=== PATIENT | male | born 1950 | race Caucasian/White ===

== ENCOUNTER 2020-04-15 12:07 | Emergency (ER) | payer MEDICARE, OTHER ==
[2020-04-15] MEDS ORDERED: KETOROLAC 30 MG/ML VIAL IVP STA (13:18)
--- NOTE | 2020-04-15 13:18 | ED Physician Documentation ---
PD HPI ABD PAIN - Stated complaint Stated Complaint: RT SIDE PX - Chief complaint Chief Complaint: Abd Pain - History obtained from History obtained from: Patient - Additional information Additional information: Otherwise healthy 69-year-old gentleman with history of renal colic x1 about 10 years ago treated conservatively presents with a days worth of moderately severe right flank pain radiating to the right lower quadrant. It is associated with some nausea and poor appetite as well as urinary frequency. He thinks it is reminiscent of prior renal colic but it has been 10 years. No history of abdominal surgeries. He has not had obvious hematuria. Review of Systems Ten Systems: 10 systems reviewed and negative Constitutional: denies: Fever, Chills Cardiac: denies: Chest pain / pressure, Palpitations Respiratory: denies: Dyspnea, Cough PD PAST MEDICAL HISTORY - Present Medications Home Medications: Ambulatory Orders Medication Instructions Recorded Confirmed HYDROcod/ACETAM 5/325 [[place] 5/325] 1 - 2 tab PO Q6H PRN #15 tablet 04/15/20 Tamsulosin [Flomax] 0.4 mg PO DAILY #14 capsule 04/15/20 - Allergies Allergies/Adverse Reactions: Allergies Allergy/AdvReac Type Severity Reaction Status Date / Time No Known Drug Allergies Allergy Verified 04/15/20 12:23 - Social History Does the pt smoke?: No Smoking Status: Never smoker Does the pt drink ETOH?: No Does the pt have substance abuse?: No - Immunizations Immunizations are current?: Yes - POLST Patient has POLST: No PD ED PE NORMAL - Vitals Vital signs reviewed: Yes - General General: Alert and oriented X 3, No acute distress - HEENT HEENT: PERRL, EOMI - Neck Neck: Supple, no meningeal sign, No bony TTP - Abdomen Abdomen: Normal bowel sounds, Soft, Non tender - Back Back: Other (No flank tenderness, no shingles rash) - Neuro Neuro: Alert and oriented X 3, Normal speech Results - Vitals Vitals: Vital Signs - 24 hr 04/15/20 04/15/20 12:23 12:25 Temperature 36.3 C L 36.5 C Heart Rate 65 65 Respiratory 18 18 Rate Blood Pressure 150/80 H 150/80 H O2 Saturation 99 99 Oxygen O2 Source Room air - Labs Labs: Laboratory Tests 04/15/20 04/15/20 04/15/20 13:05 13:28 13:28 WBC 14.6 H RBC 5.27 Hgb 15.2 Hct 47.2 MCV 89.6 MCH 28.8 MCHC 32.2 RDW 14.1 Plt Count 324 MPV 10.8 Neut # (Auto) 12.3 H Lymph # (Auto) 0.9 L Ralls # (Auto) 1.2 H Eos # (Auto) 0.1 Baso # (Auto) 0.1 Absolute Nucleated RBC 0.00 Nucleated RBC % 0.0 Sodium 142 Potassium 3.9 Chloride 101 Carbon Dioxide 25 Anion Gap 16.0 H BUN 20 Creatinine 1.2 Estimated GFR (MDRD) 60 L Glucose 104 H Calcium 9.3 Total Bilirubin 0.5 AST 19 ALT 23 Alkaline Phosphatase 96 Total Protein 7.8 Albumin 4.2 Globulin 3.6 Albumin/Globulin Ratio 1.2 Lipase 39 Urine Color YELLOW Urine Clarity CLOUDY Urine pH 5.5 Ur Specific [place] >=1.030 H Urine Protein NEGATIVE Urine Glucose (UA) NEGATIVE Urine Ketones NEGATIVE Urine Occult Blood MODERATE H Urine Nitrite NEGATIVE Urine Bilirubin NEGATIVE Urine Urobilinogen 0.2 (NORMAL) Ur Leukocyte Esterase NEGATIVE Urine RBC 0-5 Urine WBC 0-3 Ur Squamous Epith Cells NONE SEEN Amorphous Sediment Moderate Urine Bacteria Moderate H Ur Microscopic Review INDICATED Urine Culture Comments INDICATED PD MEDICAL DECISION MAKING - ED course ED course: 69-year-old gentleman with history and physical most consistent with renal colic, differential diagnosis also includes AAA, and other age-related vascular and intra-abdominal issues. CT of the abdomen and pelvis was somewhat limited by beam hardening artifact from his hips but did suggest a 3.7 mm right UVJ stone with right-sided hydronephrosis. Bilateral renal cysts, small hiatal hernia, and left inguinal hernia. All of these were discussed with the patient. His pain was better after Toradol. No narcotics here as he wanted to maintain his ability to drive. Departure - Departure Disposition: 01 Home, Self Care Clinical Impression: Renal colic on right side Condition: Good Record reviewed to determine appropriate education?: Yes Instructions: ED Stone Renal W Colic Follow-Up: Giovanny Chun MD [Provider Admit Priv/Credential] - Prescriptions: Tamsulosin [Flomax] 0.4 mg PO DAILY #14 capsule HYDROcod/ACETAM 5/325 [[place] 5/325] 1 - 2 tab PO Q6H PRN #15 tablet PRN Reason: Pain Comments: As discussed, the CAT scan was somewhat limited by your hip prosthetics, but the radiologist feels that you likely have a 3.7 mm stone which is nearly in the bladder on the right. As such we are hopeful that I will stop bothering you soon. If it is not better in a few days you can make an appointment to follow- up with one of the urologists in [place], phone number on this form. Return if worsening. Do not drink or drive while taking narcotic pain medication. You can strain your urine as discussed and if you get material out you can take it to your doctor for analysis. As discussed, incidental findings on the CAT scan included a hiatal hernia, left inguinal hernia, and renal cysts.
[2020-04-15 13:19] LABS: BILIRUBIN,URINE NEGATIVE (NEGATIVE); GLUCOSE, URINE (UA) NEGATIVE (NEGATIVE); KETONES,URINE (UA) NEGATIVE (NEGATIVE); LEUKOCYTE ESTERASE, URINE NEGATIVE (NEGATIVE); NITRITE,URINE NEGATIVE (NEGATIVE); OCCULT BLOOD,URINE MODERATE (NEGATIVE); PH,URINE 5.5 PH (5.0-7.5); PROTEIN,URINE NEGATIVE (NEGATIVE); UROBILINOGEN,URINE 0.2 (NORMAL) E.U./dL (NORMAL)
[2020-04-15 13:27] LABS: CLARITY,URINE CLOUDY (CLEAR)
[2020-04-15 13:36] LABS: BASOPHILS # (AUTO) 0.1 10^3/uL (0.0-0.1); BASOPHILS % (AUTO) 0.3 %; EOSINOPHILS # (AUTO) 0.1 10^3/uL (0.0-0.7); EOSINOPHILS % (AUTO) 0.8 %; HCT - HEMATOCRIT 47.2 % (42.0-52.0); HGB - HEMOGLOBIN 15.2 g/dL (14.0-18.0); LYMPHOCYTES # (AUTO) 0.9 10^3/uL (1.5-3.5); LYMPHOCYTES % (AUTO) 6.4 %; MEAN CORPUSCULAR HEMOGLOBIN 28.8 pg (27.0-31.0); MEAN CORPUSCULAR HGB CONC 32.2 g/dL (32.0-36.0); MEAN CORPUSCULAR VOLUME 89.6 fL (80.0-94.0); MEAN PLATELET VOLUME 10.8 fL (7.4-11.4); MONOCYTES # (AUTO) 1.2 10^3/uL (0.0-1.0); MONOCYTES % (AUTO) 8.2 %; NEUTROPHILS # (AUTO) 12.3 10^3/uL (1.5-6.6); PLT - PLATELET COUNT 324 10^3/uL (130-450); RED BLOOD COUNT 5.27 10^6/uL (4.70-6.10); RED CELL DISTRIBUTION WIDTH 14.1 % (12.0-15.0); WHITE BLOOD COUNT 14.6 x10^3/uL (4.8-10.8)
[2020-04-15 13:38] LABS: RBC,URINE 0-5 /HPF (0-5); SQUAMOUS EPITHELIAL CELL,UR NONE SEEN (<= Few); WBC,URINE 0-3 /HPF (0-3)
[2020-04-15 13:39] LABS: AMORPHOUS SEDIMENT,UR Moderate /LPF
[2020-04-15 13:40] LABS: BACTERIA,URINE Moderate /HPF (None Seen)
[2020-04-15 13:50] LABS: ALBUMIN 4.2 g/dL (3.2-5.5); ALBUMIN/GLOBULIN RATIO 1.2 (1.0-2.2); BILIRUBIN,TOTAL 0.5 mg/dL (0.2-1.0); CALCIUM 9.3 mg/dL (8.5-10.3); CREATININE 1.2 mg/dL (0.6-1.2); POTASSIUM 3.9 mmol/L (3.5-5.0); TOTAL PROTEIN 7.8 g/dL (6.7-8.2)
--- NOTE | 2020-04-15 13:56 | CT Report ---
PROCEDURE: Abdomen/Pelvis WO INDICATIONS: flank pain TECHNIQUE: Noncontrast 5 mm thick sections acquired from the diaphragms to the symphysis. 5 mm coronal and sagi ttal reformats were then performed. For radiation dose reduction, the following was used: automated exposure control, adjustment of mA and/or kV according to patient size. COMPARISON: None. FINDINGS: Image quality: Excellent. ABDOMEN: Lung bases: Bibasilar dependent atelectasis is seen. Heart size is normal. Solid organs: Liver and spleen are normal in size. Small well-circumscribed areas of hypodensities are seen scattered in right and left hepatic lobes measures up to 1.3 cm in size in anterior left hep atic lobe and up to 1.4 cm in lateral periphery of anterior segment right hepatic lobe. Gallbladder i s within normal limits Pancreas is normal in contours. No adrenal nodules. Kidneys are normal in s ize. Bilateral cortical and parapelvic renal cysts are seen. No renal calculi are seen. There is prom inence of right renal collecting system and right ureter with mild right perinephric fat stranding. M ost distal ureter is suboptimally evaluated due to presence of significant beam hardening artifacts i n bilateral hip. There is a calcification measures 3.7 mm in size seen in the region of distal right ureter/UVJ concerning for obstructing stone. No left-sided hydronephrosis is seen. Left ureter is wit hin normal limits. Peritoneum and bowel: Unenhanced bowel loops demonstrate normal wall thickness and caliber. No free fluid or air. A small hiatal hernia is seen. Sigmoid diverticulosis is noted, no CT evidence of acut e diverticulitis. Nodes and vessels: No retroperitoneal or mesenteric adenopathy by size criteria. Aorta and inferior vena cava are normal in caliber. Miscellaneous: No ventral hernias. PELVIS: Genitourinary: Bladder wall thickness is grossly normal. No other calcified bladder stone is seen. Miscellaneous: No inguinal adenopathy. Left inguinal hernia is seen containing small to moderate caroline unt of free fluid. Bones: Patient is status post bilateral hip arthroplasty. No gross hardware loosening or failure is s een. No acute fracture or dislocation. No suspicious bony lesions. No vertebral body compression fra ctures. Degenerative disc disease throughout lower thoracic and lumbar spine is seen. IMPRESSION: 1. Finding is suggestive of small 3 to 4 mm right distal ureteral/UVJ stone with mild to moderate rig ht-sided hydronephrosis and hydroureter and mild right perinephric fat stranding. 2. Bilateral renal cysts. No left-sided renal stone or hydronephrosis. 3. Small hiatal hernia. No bowel obstruction. No peritoneal free fluid or free air. Sigmoid diverticu losis without evidence of acute diverticulitis. 4. Left inguinal hernia containing moderate amount of fluid. No lymphadenopathy. Reviewed by: Javid Donovan MD on 04/15/2020 1:54 PM PST Approved by: Javid Donovan MD on 04/15/2020 1:54 PM PST Station ID: [id number]
[2020-04-15 14:13] VITALS: BP 143/95
== END 2020-04-15 14:14 | disposition home or self-care (01) ==
LOC: ED 12:07
DX: N13.2 Hydronephrosis with renal and ureteral calculous obstruction (principal); N28.1 Cyst of kidney, acquired; K40.90 Unilateral inguinal hernia, without obstruction or gangrene, not specified as recurrent; K44.9 Diaphragmatic hernia without obstruction or gangrene
CPT/HCPCS: 36415; 80053; 81001; 81003; 83690; 85025; 87086; 96374; 99284

== ENCOUNTER 2020-04-19 08:00 | Outpatient (CLI) | payer MEDICARE | END 2020-04-19 23:59 | disposition home or self-care (01) | LOC: LAB.R 08:00 | PROVIDERS: ATTEND Emergency Medicine | DX: N20.0 Calculus of kidney (principal) | CPT/HCPCS: 87086 ==

== ENCOUNTER 2020-05-30 11:33 | Outpatient (CLI) | payer MEDICARE ==
--- NOTE | 2020-05-30 15:54 | XRAY Report ---
PROCEDURE: Abdomen 1 View X-Ray INDICATIONS: PERSONAL HX OF URINARY CALCULI TECHNIQUE: 1 view of the abdomen were acquired. COMPARISON: CT KUB, 04/15/2020. FINDINGS: Surgical changes and devices: None. Bowel: No pneumoperitoneum. The bowel gas pattern is normal. Soft tissues: No masses; visualized solid organ contours appear normal in size. No suspicious abdom inal calcifications Bones: No suspicious bony abnormalities. . Moderate degenerative disc disease at L4-L5. IMPRESSION: No definitive urinary stones. Suspected small distal right ureteral stone seen on CT is not visualized on radiograph. Reviewed by: Mack Louie MD on 05/30/2020 3:53 PM PST Approved by: Mack Louie MD on 05/30/2020 3:53 PM PST Station ID: [id number]
== END 2020-05-30 11:34 | disposition home or self-care (01) ==
LOC: DI 11:33
PROVIDERS: ATTEND Specialist
DX: Z87.442 Personal history of urinary calculi (principal); M51.36 Other intervertebral disc degeneration, lumbar region

== ENCOUNTER 2020-06-24 12:55 | Outpatient (CLI) | payer MEDICARE ==
[2020-06-24 13:53] LABS: CALCIUM 9.5 mg/dL (8.5-10.3); URIC ACID 6.4 mg/dL (2.6-7.2)
--- NOTE | 2020-06-24 15:26 | Ultrasound Report ---
PROCEDURE: Pelvic Limited or F/U INDICATIONS: LEFT INGUINAL MASS TECHNIQUE: Real-time transabdominal scanning was performed of the left inguinal region with and without Valsalva , with image documentation. COMPARISON: CT of the abdomen and pelvis without contrast dated 04/15/2020. FINDINGS: A fat-containing reducible left inguinal hernia is noted. A benign cystic structure is noted in the l eft inguinal region measuring 4.8 x 2.5 cm. IMPRESSION: 1. Fat-containing reducible left inguinal hernia. 2. Benign cystic structure in the left inguinal region measuring 4.8 x 2.5 cm. Reviewed by: Nemesio Landon MD on 06/24/2020 2:24 PM [facility] Approved by: Nemesio Landon MD on 06/24/2020 2:24 PM [facility] Station ID: [id number]
== END 2020-06-24 12:56 | disposition home or self-care (01) ==
LOC: DI 12:55
PROVIDERS: ATTEND Specialist
DX: K40.90 Unilateral inguinal hernia, without obstruction or gangrene, not specified as recurrent (principal); R93.5 Abnormal findings on diagnostic imaging of other abdominal regions, including retroperitoneum
CPT/HCPCS: 36415; 82310; 83970; 84153; 84550

== ENCOUNTER 2020-08-25 09:21 | Outpatient (CLI) | payer MEDICARE ==
[2020-08-25 09:44] LABS: BASOPHILS # (AUTO) 0.1 10^3/uL (0.0-0.1); BASOPHILS % (AUTO) 1.3 %; EOSINOPHILS # (AUTO) 0.4 10^3/uL (0.0-0.7); EOSINOPHILS % (AUTO) 5.1 %; HCT - HEMATOCRIT 47.1 % (42.0-52.0); HGB - HEMOGLOBIN 15.3 g/dL (14.0-18.0); LYMPHOCYTES # (AUTO) 1.6 10^3/uL (1.5-3.5); LYMPHOCYTES % (AUTO) 22.9 %; MEAN CORPUSCULAR HEMOGLOBIN 29.3 pg (27.0-31.0); MEAN CORPUSCULAR HGB CONC 32.5 g/dL (32.0-36.0); MEAN CORPUSCULAR VOLUME 90.2 fL (80.0-94.0); MEAN PLATELET VOLUME 10.9 fL (7.4-11.4); MONOCYTES # (AUTO) 0.6 10^3/uL (0.0-1.0); MONOCYTES % (AUTO) 7.9 %; NEUTROPHILS # (AUTO) 4.5 10^3/uL (1.5-6.6); NEUTROPHILS % (AUTO) 62.5 %; PLT - PLATELET COUNT 300 10^3/uL (130-450); RED BLOOD COUNT 5.22 10^6/uL (4.70-6.10); RED CELL DISTRIBUTION WIDTH 14.1 % (12.0-15.0); WHITE BLOOD COUNT 7.1 x10^3/uL (4.8-10.8)
[2020-08-25 10:26] LABS: ALBUMIN 4.1 g/dL (3.2-5.5); ALBUMIN/GLOBULIN RATIO 1.3 (1.0-2.2); ALKALINE PHOSPHATASE 72 IU/L (42-121); ALT ALANINE AMINOTRANSFERASE 23 IU/L (10-60); AST ASPARTATE AMINOTRANSFERASE 18 IU/L (10-42); BILIRUBIN,TOTAL 0.6 mg/dL (0.2-1.0); BUN - BLOOD UREA NITROGEN 20 mg/dL (6-20); CALCIUM 9.4 mg/dL (8.5-10.3); CARBON DIOXIDE - CO2 25 mmol/L (21-32); CHLORIDE 103 mmol/L (101-111); CHOL/HDL RATIO 3.9 (<5.0); CHOLESTEROL 236 mg/dL; CREATININE 1.3 mg/dL (0.6-1.2); GFR - MDRD 55 (>89); GLUCOSE 97 mg/dL (70-100); HDL CHOLESTEROL 60 mg/dL; LDL CHOLESTEROL,CALCULATED 146 mg/dL; LDL/HDL RATIO 2.4 (<3.6); POTASSIUM 4.4 mmol/L (3.5-5.0); SODIUM 139 mmol/L (135-145); TOTAL PROTEIN 7.3 g/dL (6.7-8.2); TRIGLYCERIDES 149 mg/dL; VLDL CHOLESTEROL 30 mg/dL
== END 2020-08-25 09:22 | disposition home or self-care (01) ==
LOC: LAB 09:21
PROVIDERS: ATTEND Internal Medicine
DX: Z79.899 Other long term (current) drug therapy (principal)
CPT/HCPCS: 36415; 80053; 80061; 83721; 85025